=== PATIENT | male | born 1965 | race Two or more races ===

== ENCOUNTER 2023-09-26 07:01 | Day surgery (SDC) | payer BC ==
[~2023-09-26] VITALS: Ht 180.3 cm; Wt 81.6 kg
[2023-09-26] VITALS (10 sets, daily range): BP systolic 96–130; BP diastolic 47–73; PULSE 43–47; RESP 13–17; TEMP 98.3; O2SAT 95–99
[~2023-09-26 07:01] MED LIST: DRON400T PO; METO25TA5 PO; PRAV20TA3 PO
[2023-09-26] MEDS ORDERED: diphenhdrAMINE HCL 50 MG/1 ML VL IV STA (07:39)
[2023-09-26] MEDS ORDERED: fentaNYL CITRATE 100 MCG/2 ML VL IV STA (07:39)
[2023-09-26] MEDS ORDERED: MIDAZOLAM HCL 2MG/2ML 2ml VIAL (1mg/ml) IV STA (07:39)
[2023-09-26] MEDS ORDERED: LIDOCAINE VISCOUS 2% 15ML UD MT PRN (07:45)
[2023-09-26] MEDS ORDERED: LAMO200T34 PO (08:59)
[2023-09-26] MEDS ORDERED: ASPI81CH74 PO (08:59)
== END 2023-09-26 10:05 | disposition home or self-care (01) ==
LOC: CATH 07:01
PROVIDERS: ATTEND Internal Medicine Cardiovascular Disease
DX: Q20.6 Isomerism of atrial appendages (principal); I08.1 Rheumatic disorders of both mitral and tricuspid valves; Z79.82 Long term (current) use of aspirin; Z79.899 Other long term (current) drug therapy; Z98.890 Other specified postprocedural states
CPT/HCPCS: 93312; 93325; J2250; J3010; 99152

== ENCOUNTER 2024-12-13 06:43 | Day surgery (SDC) | payer BC ==
[~2024-12-13] VITALS: Ht 180.3 cm; Wt 83.9 kg
[2024-12-13] VITALS (8 sets, daily range): BP systolic 96–112; BP diastolic 63–70; PULSE 42–49; RESP 16–18; TEMP 98.7; O2SAT 93–97
[~2024-12-13 06:43] MED LIST changes: +ALEN70TA21 PO; +ASPI81CH74 PO; +B-CO1CAP18 PO; +BUPR-346 PO; +CALC667C PO; +CHOL20007 PO; +COEN400C8 OR; +LAMO200T34 PO; +MAGN400T40 PO; +OMEGCAP28 OR; +POM SC
[2024-12-13] MEDS: MIDAZOLAM HCL 2MG/2ML 2ml VIAL (1mg/ml) IV STA (08:38)
[2024-12-13] MEDS: fentaNYL CITRATE 100 MCG/2 ML VL IV STA (08:38)
[2024-12-13] MEDS: LIDOCAINE VISCOUS 2% 15ML UD MT STA (08:38)
--- NOTE | 2024-12-13 09:25 | DVHOP2 ---
Operative Report Trans-Esophageal Echocardiogram PROCEDURE REPORT Date of Service: 12/13/2024 Temporary Administrative Assistant: Laureano Holloway MD PROCEDURE PERFORMED: Transesophageal echocardiogram, conscious sedation administration and supervision, more than 15 minutes. Intra cardiac bubble study. PREOPERATIVE DIAGNOSES: to rule out VSD DESCRIPTION OF PROCEDURE: The patient signed informed consent understanding risks, benefits and alternatives of the procedure, he wished to proceed. The patient was given 15 mL of oral viscous lidocaine. He was placed in a left lateral decubitus position and conscious sedation was administered per color laboratory technician protocol (1 mg of Versed and 25 mcg of Fentanyl). I administered a bite block into his mouth and a TIM probe into the mid esophagus without any difficulties or complications. Multiple planar images were obtained. Bubble study was also performed. At the completion of procedure, TIM probe was removed and there were no immediate complications. Vitals signs were stable throughout the procedure. FINDINGS: 1. Left ventricle: Left ventricle was normal sized with normal systolic function. LVEF was 60%. There was no gross wall motion abnormality seen. 2. Right ventricle: Normal RV size with normal systolic function. 3. Left atrium: LA enlarged 4. Right atrium: RA was enlarged 5. Mitral valve: Mild Mitral regurgitation, no significant stenosis, normal functioning valve. There was no vegetation 6. Left atrial appendage: Minimal remnant of NEREIDA was seen with no communication to Left Atrium (negative color flow and no visible communication) 7. Aortic valve: Aortic valve was trileaflet. There was no Stenosis/Insufficiency. There was no vegetation 8. Pulmonic valve: Trivial pulmonic insufficiency. No significant stenosis. There was no vegetation 9. Tricuspid valve: Mild tricuspid regurgitation. There was no vegetation 10. Interatrial septum: Negative color flow for right to left shunt. Bubble study was performed and it was negative. 11. Interventricular septum: There was no identified tear / perforation / VSD. Color flow and Bubble study were also negative. 11. Pericardium: No significant effusion. 12. Thoracic aorta: No significant plaquing. No VSD identified. LAUREANO HOLLOWAY MD Dec 13, 2024 09:25
== END 2024-12-13 11:16 | disposition home or self-care (01) ==
LOC: CATH 06:43
PROVIDERS: ATTEND Internal Medicine Cardiovascular Disease
DX: I08.1 Rheumatic disorders of both mitral and tricuspid valves (principal); I48.0 Paroxysmal atrial fibrillation; E78.5 Hyperlipidemia, unspecified; Q89.9 Congenital malformation, unspecified; Z79.899 Other long term (current) drug therapy
CPT/HCPCS: 93312; J2250; J3010; 99152